=== PATIENT | male | born 1940 | race Caucasian/White ===

== ENCOUNTER → 2019-06-26 | Outpatient (CLI) | payer MEDICARE ==
--- NOTE | 2019-06-26 15:40 | Diagnostic Imaging Report ---
MRI SPINE CERVICAL WO HISTORY: Neck and left shoulder pain COMPARISON: None. TECHNIQUE: Sagittal T1, sagittal T2, sagittal inversion recovery, axial T2 and axial T1 weighted MR images of the cervical spine were obtained without intravenous contrast. DISCUSSION: Alignment: Normal lordosis. No scoliosis. Vertebrae: No definite evidence for fractures, infection, or neoplasm. Cervicomedullary junction: No abnormalities. Spinal cord: Normal in signal and morphology from the foramen magnum through T4. Soft tissues: Subcentimeter T2 hyperintense left thyroid nodule is present; no further imaging is indicated. Moderate multilevel disc degeneration, most prominent at C6-C7, is superimposed on a congenitally narrow cervical spinal canal. C2-C3: Mild canal stenosis due to posterior disc osteophyte complex and ligamentum flavum thickening. Mild right foraminal stenosis due to uncovertebral and facet arthrosis. No significant left foraminal stenosis. C3-C4: Moderate canal stenosis due to posterior disc osteophyte complex and ligamentum flavum thickening. Mild to moderate right and moderate to severe left foraminal stenoses due to uncovertebral and facet arthrosis. C4-C5: Mild canal stenosis due to posterior disc osteophyte complex and ligamentum flavum thickening. Severe right and mild left foraminal stenoses due to uncovertebral and facet arthrosis. C5-C6: Moderate canal stenosis due to posterior disc osteophyte complex and ligamentum flavum thickening. Moderate right and severe left foraminal stenoses due to uncovertebral and facet arthrosis. C6-C7: Moderate canal stenosis due to posterior disc osteophyte complex and ligamentum flavum thickening. Severe bilateral foraminal stenoses due to uncovertebral and facet arthrosis. C7-T1: Patent canal and foramina. IMPRESSION: 1. Moderate multilevel disc degeneration, most prominent at C6-C7, superimposed on a congenitally narrow cervical spinal canal. 2. 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 3. Multilevel moderate to severe bilateral degenerative foraminal stenoses as described above. Signed by: Dr. Ramon Singleton M.D. on 06/26/2019 3:37 PM
== END ==
LOC: MRI 13:49
PROVIDERS: ATTEND Internal Medicine
DX: M54.12 Radiculopathy, cervical region (principal)
CPT/HCPCS: 72141

== ENCOUNTER → 2022-04-07 | Day surgery (SDC) | payer MEDICARE ==
[2022-04-06 10:36] LABS: BASOPHILS # (AUTO) 0.1 (0.0-0.1); BASOPHILS % 0.6 % (0.0-1.0); EOSINOPHILS # (AUTO) 0.2 (0.0-0.4); EOSINOPHILS % 1.8 % (0.0-6.0); HEMATOCRIT 48.7 % (38.2-49.6); HEMOGLOBIN 15.3 g/dL (14.0-18.0); LYMPHOCYTES # (AUTO) 2.1 (1.0-3.2); MEAN CORPUSCULAR HEMOGLOBIN 28.9 pg (28-32); MEAN CORPUSCULAR HGB CONC 31.4 g/dL (31-35); MEAN CORPUSCULAR VOLUME 91.9 fL (81-99); MONOCYTES # (AUTO) 0.7 (0.2-0.8); MONOCYTES % 7.8 % (4.4-11.3); NEUTROPHILS # (AUTO) 5.7 (2.1-6.9); NEUTROPHILS % 65.6 % (38.7-80.0); PLATELET COUNT 264 x10e3/uL (140-360)
[~2022-04-07] MED LIST: ACTOS15 MG PO; ATORVASTATIN CA20 MG PO; COLACE100 M1 PO; DULCOLAX5 MG PO; GLUCAGON FOR INJ 1 MG VIAL ONE; HYOSCYAMINE SULFATE 0.5 MG/ML INJ ONE; LANTUS 3ML100 UNITS/ SC; LIDOCAINE HCL 2% LOCAL INJ 5 ML SDV VIAL INJ ONE; LINZESS72 MCG PO; LYUMJEV100 UNIT/1 SC; METOPROLOL SUCC25 MG PO; OCUVITE TABLET1 EAC1 PO; PROPOFOL IV EMULSION 10 MG/ML 20 ML VIAL ONE; SENOKOT-S TABL1 EACH PO; VITAMIN D350 MCG PO
[2022-04-07 12:00] VITALS: BP 144/82
[2022-04-12 07:15] LABS: ENDOMYSIAL ANTIBODIES, IGA Negative (Negative)
== END | disposition home or self-care (01) ==
LOC: OR 08:04
PROVIDERS: ATTEND Internal Medicine Gastroenterology
DX: K20.90 Esophagitis, unspecified without bleeding (principal); K29.50 Unspecified chronic gastritis without bleeding; D12.2 Benign neoplasm of ascending colon; D12.4 Benign neoplasm of descending colon; D12.5 Benign neoplasm of sigmoid colon; K57.30 Diverticulosis of large intestine without perforation or abscess without bleeding; K62.89 Other specified diseases of anus and rectum; K64.8 Other hemorrhoids; E11.9 Type 2 diabetes mellitus without complications; K58.9 Irritable bowel syndrome, unspecified; G47.33 Obstructive sleep apnea (adult) (pediatric); Z99.81 Dependence on supplemental oxygen; I10 Essential (primary) hypertension; E78.00 Pure hypercholesterolemia, unspecified; R10.84 Generalized abdominal pain; K59.09 Other constipation; Z68.29 Body mass index [BMI] 29.0-29.9, adult; Z86.73 Personal history of transient ischemic attack (TIA), and cerebral infarction without residual deficits; Z01.810 Encounter for preprocedural cardiovascular examination; Z01.812 Encounter for preprocedural laboratory examination; Z20.822 Contact with and (suspected) exposure to COVID-19
CPT/HCPCS: 36415 ×2; 43239; 45380; 45385; 82784; 82948; 83516; 83630; 83993; 85025; 86256; 87045; 87177; 87324; 87328; 87449; 88305; 88342; 93005; C9113; J1610; J1980; J2001; J2704; 45378; 88312